=== PATIENT | male | born 1980 | race Caucasian/White ===

== ENCOUNTER → 2017-06-30 | Outpatient (CLI) | payer OTHER ==
[2017-06-30 14:45] LABS: ALT/SGPT 17 U/L (12-78); AST/SGOT 9 U/L (15-37); BLOOD UREA NITROGEN 15 mg/dl (7-18); BUN/CREATININE RATIO 22.3 (10-20); CALCIUM 9.3 mg/dl (8.5-10.1); CARBON DIOXIDE 30 mmol/L (21-32); CHLORIDE 105 mmol/L (98-107); CHOLESTEROL 151 mg/dl (0-200); CREATININE 0.69 mg/dl (0.60-1.40); GLUCOSE 75 mg/dl (70-99); POTASSIUM 3.8 mmol/L (3.5-5.1); SODIUM 141 mmol/L (136-145)
[2017-06-30 14:55] LABS: ALB/GLOB RATIO 1.3 (0.9-2); ALKALINE PHOSPHATASE 63 U/L (45-117); CHOLESTEROL/HDL RATIO 3.1; HDL CHOLESTEROL 48 mg/dl; LDL CHOLESTEROL CALCULATED 75 mg/dl; TRIGLYCERIDES 140 mg/dl (0-150); VERY LOW DENSITY LIPOPROT CALC 28 mg/dl
[2017-06-30 15:04] LABS: RATIO 5.5 mcg/mg (0-30.0)
[2017-06-30 18:40] LABS: ESTIMATED AVERAGE GLUCOSE 131 mg/dl; HA1C FLAG Normal (Normal)
--- NOTE | 2017-07-14 09:36 | CODING QUERY MEDICAL NECESSITY ---
CQSUPPORTING DIAGNOSIS NEEDED A supporting diagnosis is required for the test/procedure performed on this patient in order for us to be reimbursed by the patient's insurance. Please provide a supporting diagnosis for the following test/procedure listed below next to the test name along with your signature. *If there is no additional diagnosis for this patient that would support the following test/procedure please document that below next to the test/procedure. Test(s)/Procedure(s) that require a supporting diagnosis: DOS 06/30/17 VITAMIN D TEST GLYCATED HEMOGLOBIN TEST TEST ORDERED BY MARCO A CISNEROS Provider Signature: Date: Thank you Sarai Cortes Health Information Management Once completed, please kindly fax back to [phone] For questions please call [phone]
== END | disposition home or self-care (01) ==
LOC: C.LAB1850 12:35
PROVIDERS: ATTEND Physician Assistant
DX: E10.9 Type 1 diabetes mellitus without complications (principal)

== ENCOUNTER 2018-02-09 20:21 | Emergency (ER) | payer OTHER ==
[~2018-02-09] VITALS: Ht 172.7 cm; Wt 86.9 kg
[2018-02-09 20:43] VITALS: TEMP 36.8; Ht 172.7 cm; Wt 86.9 kg
[2018-02-09] MEDS ORDERED: SODIUM CHLORIDE 0.9% 1000ML 2,000 ML IV STA (21:14)
[2018-02-09] MEDS ORDERED: MoRPHine SULFATE 4 MG/ML 1 ML CARP\\VIAL IV STA (21:24)
[2018-02-09 21:28] LABS: BASO ABS # 0.08 K/uL (0-0.2); EOS % 4.1 %; EOS ABS # 0.31 K/uL (0-0.5); HEMATOCRIT 44.8 % (42-52); HEMOGLOBIN 15.7 g/dL (14.0-18.0); IG# 0.04 K/uL (0.00-0.02); LYMPH % 27.5 %; MEAN CELL VOLUME 93.7 fL (80-100); MEAN CORPUSCULAR HEMOGLOBIN 32.8 pg (25-34); MEAN PLATELET VOLUME 9.2 fL (7.4-10.4); MONO % 11.1 %; MONO ABS # 0.85 K/uL (0.11-0.59); NEUT % 55.8 %; NEUT ABS # 4.26 K/uL (1.4-6.5); PLATELET COUNT 299 K/uL (130-400); RED CELL DISTRIBUTION WIDTH CV 13.2 % (11.5-14.5); RED CELL DISTRIBUTION WIDTH SD 45.2 fL (36.4-46.3); WHITE BLOOD COUNT 7.64 K/uL (4.8-10.8)
[2018-02-09 21:44] LABS: ALBUMIN 3.5 gm/dl (3.4-5.0); CALCIUM 9.4 mg/dl (8.5-10.1); CREATININE 0.94 mg/dl (0.60-1.40)
[2018-02-09 21:47] LABS: TOTAL PROTEIN 7.3 gm/dl (6.4-8.2)
[2018-02-09] MEDS ORDERED: NovoLIN-R INSULIN PER UNIT CHARGE IV STA (21:50)
--- NOTE | 2018-02-09 22:02 | DIAGNOSTIC IMAGING REPORT ---
CHEST ONE VIEW PORTABLE CLINICAL HISTORY: weak mental status change COMPARISON STUDY: No previous studies for comparison. FINDINGS: The bones soft tissues and hemidiaphragms are normal. The cardiomediastinal silhouette is normal. The lungs are clear. The pulmonary vasculature is normal. IMPRESSION: Negative chest. The above report was generated using voice recognition software. It may contain grammatical, syntax or spelling errors. Electronically signed by: Isrrael Calvillo M.D. 02/09/2018 10:00 PM Dictated Date/Time: 02/09/2018 10:00 PM
[2018-02-09 23:11] VITALS: PULSE 77; O2SAT 97
[2018-02-09] MEDS ORDERED: MELATAB2 PO (23:11)
[2018-02-09] MEDS ORDERED: MULT-506 PO (23:12)
[2018-02-09] MEDS ORDERED: FOLI400T41 PO (23:13)
[2018-02-09] MEDS ORDERED: TOPI25TA99 PO (23:15)
[2018-02-09] MEDS ORDERED: DOCU100C31 PO (23:16)
[2018-02-09] MEDS ORDERED: ATOR-24 PO (23:17)
[2018-02-09] MEDS ORDERED: LISI-789 PO (23:19)
[2018-02-09] MEDS ORDERED: PHEN-774 PO (23:20)
[2018-02-09] MEDS ORDERED: MGNG500 PO (23:22)
[2018-02-09 23:31] VITALS: BP 112/70
[2018-02-09] MEDS ORDERED: INSDGI SQ (23:53)
[2018-02-09] MEDS ORDERED: INSU100I SQ (23:55)
[2018-02-09] MEDS ORDERED: AMPH30TA2 PO (23:56)
[2018-02-09] MEDS ORDERED: AMPH1TAB58 PO (23:58)
[2018-02-09] MEDS ORDERED: HYDR-5688 PO (23:59)
--- NOTE | 2018-02-10 01:33 | EMERGENCY ROOM VISIT NOTE ---
History Report prepared by Lelo: Jairo Ledezma Under the Supervision of: Dr. Jos Zamudio D.O. First contact with patient: 21:06 Chief Complaint: REFERRED BY DOCTOR Stated Complaint: DR BILLINGSLEY SENT DUE TO BLOOD SUGAR History of Present Illness The patient is a 37 year old male who presents to the Emergency Room with complaints of constant hypoglycemia beginning earlier today. The patient states he was diagnosed with type I diabetes 9 months ago. He reports he was on 5 units before meals and 20 units at bed time. The patient notes he was evaluated by the business process associate recently and told to increase his insulin to 20 units three times a day and 35 units at night. He states he started to get dizzy and weak today. The patient reports his last bowel movement was today, and it was very small. He notes he had surgery about a week ago for hemorrhoids, and he is still having trouble with his bowels. The patient states he had burning with urination earlier today, but it has resolved. He reports his blood sugar was 500 this morning, and it decreased to 300 prior to arrival in Dr. Billingsley's office. The patient notes he was sent to the ED directly from his business process associate's office. He denies cough, runny nose, pain with urination, abdominal pain, fevers, and vomiting. Source of History: patient Onset: earlier today Symptom Intensity: Blood glucose of 500 Quality: other (hyperglycemia) Timing: constant Associated Symptoms: + weakness, No fevers, No cough, No vomiting, No abdominal pain Note: Associated symptoms: burning with urination, dizziness Denies: runny nose, pain with urination Review of Systems See HPI for pertinent positives & negatives. A total of 10 systems reviewed and were otherwise negative. Past Medical & Surgical Medical Problems: (1) Diabetes type I Family History Patient reports no known family medical history. Social History Smoking Status: Current Some Day Smoker Marital Status: Occupation Status: employed Current/Historical Medications Scheduled Amphetamine-Dextroamphetamine 30MG (Adderall 30MG), 15 MG PO QAM Amphetamine-Dextroamphetamine 5MG (Adderall 5MG), 5 MG PO HS Atorvastatin (Lipitor), 40 MG PO DAILY Docusate Sodium (Docusate Sodium), 100 MG PO BID Folic Acid (Folvite), 400 MCG PO DAILY Insulin Glargine (Lantus), 35 UNITS SQ QPM Insulin Lispro (Human) (Humalog), 20 UNITS SQ AC Lisinopril (Zestril), 2.5 MG PO DAILY Magnesium Gluconate (Mag-G), 500 MG PO DAILY Melatonin (Melatonin Maximum Strengt), 2.5 MG PO HS Multivitamin (Multivitamin), 1 TAB PO DAILY Phenazopyridine Hcl (Pyridium), 100 MG PO TID Topiramate (Topamax ), 50 MG PO HS Scheduled PRN Hydrocodone/Acetaminophen 5MG/325MG (Poth 5MG/325MG), 1 TABLET PO Q4H PRN for Pain Allergies Coded Allergies: No Known Allergies (Unverified , 02/09/18) Physical Exam Vital Signs Date Time Temp Pulse Resp B/P (MAP) Pulse Ox O2 Delivery O2 Flow Rate FiO2 02/09/18 23:31 112/70 02/09/18 23:11 77 21 97 02/09/18 23:01 101/63 02/09/18 22:41 78 17 99 02/09/18 22:36 86 18 99 02/09/18 22:31 121/70 02/09/18 22:06 80 18 100 02/09/18 22:01 21 110/83 02/09/18 21:56 82 99 02/09/18 21:31 106/61 02/09/18 21:26 84 23 99 02/09/18 21:21 80 14 100 Room Air 02/09/18 21:17 102/60 02/09/18 21:10 95 02/09/18 20:43 36.8 99 16 100/59 97 Room Air Physical Exam GENERAL: Sitting up in bed, disheveled, non-toxic EYE EXAM: normal conjunctiva. OROPHARYNX: no exudate, no erythema, lips, buccal mucosa, and tongue normal and mucous membranes are moist NECK: supple, no nuchal rigidity, no adenopathy, non-tender LUNGS: Clear to auscultation. Normal chest wall mechanics HEART: no murmurs, S1 normal and S2 normal ABDOMEN: abdomen soft, non-tender, normo-active bowel sounds, no masses, no rebound or guarding. BACK: Back is symmetrical on inspection and there is no deformity, no midline tenderness, no CVA tenderness. RECTAL: Small external hemorrhoids present. No induration or erythema. SKIN: no rashes and no bruising UPPER EXTREMITIES: upper extremities are grossly normal. LOWER EXTREMITIES: No pitting edema. NEURO EXAM: Normal sensorium, cranial nerves II-XII grossly intact, normal speech, no gross weakness of arms, no gross weakness of legs. Medical Decision & Procedures ER Provider Diagnostic Interpretation: Radiology results as stated below per my review and the radiologist's interpretation: ' CHEST ONE VIEW PORTABLE CLINICAL HISTORY: weak mental status change COMPARISON STUDY: No previous studies for comparison. FINDINGS: The bones soft tissues and hemidiaphragms are normal. The cardiomediastinal silhouette is normal. The lungs are clear. The pulmonary vasculature is normal. IMPRESSION: Negative chest. The above report was generated using voice recognition software. It may contain grammatical, syntax or spelling errors. Electronically signed by: Isrrael Calvillo M.D. 02/09/2018 10:00 PM Dictated Date/Time: 02/09/2018 10:00 PM Laboratory Results 02/09/18 20:55 Red Blood Count 4.78, Mean Corpuscular Volume 93.7, Mean Corpuscular Hemoglobin 32.8, Mean Corpuscular Hemoglobin Concent 35.0, Mean Platelet Volume 9.2, Neutrophils (%) (Auto) 55.8, Lymphocytes (%) (Auto) 27.5, Monocytes (%) (Auto) 11.1, Eosinophils (%) (Auto) 4.1, Basophils (%) (Auto) 1.0, Neutrophils # (Auto ) 4.26, Lymphocytes # (Auto) 2.10, Monocytes # (Auto) 0.85, Eosinophils # (Auto ) 0.31, Basophils # (Auto) 0.08 02/09/18 20:55 Test 02/09/18 20:55 02/09/18 22:55 02/09/18 22:56 White Blood Count 7.64 K/uL (4.8-10.8) Red Blood Count 4.78 M/uL (4.7-6.1) Hemoglobin 15.7 g/dL (14.0-18.0) Hematocrit 44.8 % (42-52) Mean Corpuscular Volume 93.7 fL (80-100) Mean Corpuscular Hemoglobin 32.8 pg (25-34) Mean Corpuscular Hemoglobin Concent 35.0 g/dl (32-36) Platelet Count 299 K/uL (130-400) Mean Platelet Volume 9.2 fL (7.4-10.4) Neutrophils (%) (Auto) 55.8 % Lymphocytes (%) (Auto) 27.5 % Monocytes (%) (Auto) 11.1 % Eosinophils (%) (Auto) 4.1 % Basophils (%) (Auto) 1.0 % Neutrophils # (Auto) 4.26 K/uL (1.4-6.5) Lymphocytes # (Auto) 2.10 K/uL (1.2-3.4) Monocytes # (Auto) 0.85 K/uL (0.11-0.59) Eosinophils # (Auto) 0.31 K/uL (0-0.5) Basophils # (Auto) 0.08 K/uL (0-0.2) RDW Standard Deviation 45.2 fL (36.4-46.3) RDW Coefficient of Variation 13.2 % (11.5-14.5) Immature Granulocyte % (Auto) 0.5 % Immature Granulocyte # (Auto) 0.04 K/uL (0.00-0.02) Anion Gap 7.0 mmol/L (3-11) Est Creatinine Clear Calc Drug Dose 115.3 ml/min Estimated GFR () 119.6 Estimated GFR (Non- 103.2 BUN/Creatinine Ratio 15.8 (10-20) Calcium Level 9.4 mg/dl (8.5-10.1) Total Bilirubin 0.4 mg/dl (0.2-1) Direct Bilirubin 0.1 mg/dl (0-0.2) Aspartate Amino Transf (AST/SGOT) 11 U/L (15-37) Alanine Aminotransferase (ALT/SGPT) 26 U/L (12-78) Alkaline Phosphatase 83 U/L (45-117) Total Protein 7.3 gm/dl (6.4-8.2) Albumin 3.5 gm/dl (3.4-5.0) Lipase 236 U/L (73-393) Random Cortisol 4.49 mcg/dl Urine Color ORANGE Urine Appearance CLEAR (CLEAR) Urine pH (4.5-7.5) Urine Specific [place] 1.030 (1.000-1.030) Urine Protein NEG (NEG) Urine Glucose (UA) (NEG) Urine Ketones (NEG) Urine Occult Blood (NEG) Urine Nitrite (NEG) Urine Bilirubin (NEG) Urine Urobilinogen (NEG) Urine Leukocyte Esterase (NEG) Urine RBC 0-4 /hpf (0-4) Urine WBC 1-5 /hpf (0-5) Urine Epithelial Cells 5-10 /lpf (0-5) Urine Bacteria NEG (NEG) Urine Hyaline Casts 1-5 /lpf (0-5) Bedside Glucose 221 mg/dl (70-99) Laboratory results per my review. Medications Administered Medications (Trade) Dose Ordered Sig/Deven Route Start Time Stop Time Status Last Admin Dose Admin Sodium Chloride 2,000 ml @ 999 mls/hr Q2H1M STAT IV 02/09/18 21:14 02/09/18 23:14 DC 02/09/18 21:16 999 MLS/HR Morphine Sulfate (MoRPHine SULFATE INJ) 4 mg NOW STAT IV 02/09/18 21:24 02/09/18 21:25 DC 02/09/18 21:32 4 MG Insulin Human Regular (novoLIN-R U-100 PER UNIT) 3 units NOW STAT IV 02/09/18 21:50 02/09/18 21:51 DC 02/09/18 22:07 3 UNITS ECG Per My Interpretation Indication: weakness Rate (beats per minute): 84 Rhythm: sinus rhythm Findings: no ectopy, other (Normal axis) ED Course ED COURSE: Vital signs were reviewed and showed tachycardia. The patients medical record was reviewed The above diagnostic studies were performed and reviewed. ED treatments and interventions as stated above. 2107: The patient was evaluated in room C12B. A complete history and physical examination was performed. 2113: Ordered Sodium Chloride 2000 ml @ 999 mls/hr IV 2123: Ordered Morphine Sulfate 4mg IV 0: Ordered Insulin Human Regular 3 units IV 2331: Upon reevaluation, the patient is resting. I discussed my findings with the patient and he understands and agrees with the treatment plan. Based on the patients age, coexisting illnesses, exam and lab findings the decision to treat as an outpatient was made. The patient remained stable while under my care. The patient appeared well at the time of discharge. Medical Decision Differential Diagnosis includes but is not limited to dehydration, stroke, anemia, hypoglycemia, hyponatremia, hypernatremia, urinary tract infection, pneumonia, bronchitis, sepsis, gastroenteritis, additional abdominal pathology, metabolic abnormalities and infections. Patient is a 37-year-old male that presents the ER for hyperglycemia. This is been elevated he has been following with his business process associate. He is a type I diabetic. No upper respiratory symptoms. No significant abdominal pain. Exam is benign. CBC along with BMP, LFTs, bilirubin lipase were unremarkable. Random cortisol was 4.5 requested by endocrinology. BSG trended down to 21 after IV insulin and fluids. No gap. UA without white cells. Patient was feeling significantly better. No obvious signs of infection. He was discharged follow-up with PCP as an outpatient. Discussed with Pt concerning signs and symptoms to watch out for. Pt was instructed to follow up with their PCP and discussed with the patient their option to return to the ED at anytime for persistent or worsening symptoms. The appropriate anticipatory guidance and out-patient management, including indications for return to the emergency department, were explained at length to the patient and understood. Medication Reconcilliation Current Medication List: was personally reviewed by me Blood Pressure Screening Patient's blood pressure: Normal blood pressure Blood pressure disposition: Did not require urgent referral Impression Primary Impression: Hyperglycemia Scribe Attestation The scribe's documentation has been prepared under my direction and personally reviewed by me in its entirety. I confirm that the note above accurately reflects all work, treatment, procedures, and medical decision making performed by me. Departure Information Dispostion Home / Self-Care Referrals [facility] [employer] Forms HOME CARE DOCUMENTATION FORM, IMPORTANT VISIT INFORMATION, WORK / SCHOOL INSTRUCTIONS Patient Instructions Hyperglycemia, My [facility] Additional Instructions Please follow up with your primary care doctor with in the next 24 hours. Any worsening of your symptoms, please return to the ED immediately. This includes any fevers greater than 100.4, worsening pain, chest pain, shortness breath, persistent nausea, vomiting, unable to eat or drink, or any other concerning signs or symptoms from your standpoint. Any fevers above 100.4 or worsening pain please return to the ER for repeat abdominal exam. Please follow-up with your business process associate for blood sugars.
[2018-02-12] MEDS ORDERED: ASPCH81X PO (08:37)
== END 2018-02-09 23:47 | disposition home or self-care (01) ==
LOC: C.EDB 20:22 → C.EDC 23:47
DX: E10.65 Type 1 diabetes mellitus with hyperglycemia (principal); F17.210 Nicotine dependence, cigarettes, uncomplicated; Z79.4 Long term (current) use of insulin; Z79.899 Other long term (current) drug therapy

== ENCOUNTER → 2018-02-12 | Day surgery (SDC) | payer OTHER ==
[~2018-02-12] VITALS: Ht 172.7 cm; Wt 87.8 kg
[~2018-02-12] MED LIST: AMPH1TAB58 PO; AMPH30TA2 PO; ASPCH81X PO; ATOR-24 PO; COSYNTROPIN INJ 1 MCG in SYRINGE 0 ML IV SCH; DOCU100C31 PO; FOLI400T41 PO; HYDR-5688 PO; INSDGI SQ; INSU100I SQ; LISI-789 PO; MELATAB2 PO; MGNG500 PO; MULT-506 PO; PHEN-774 PO; TOPI25TA99 PO
[2018-02-12 08:38] VITALS: BP 94/63; PULSE 63; TEMP 36.8; O2SAT 96; Ht 172.7 cm; Wt 87.8 kg
[2018-02-12 09:19] VITALS: BP 110/73; PULSE 65; O2SAT 95
[2018-02-12 09:54] VITALS: BP 116/72; PULSE 67; TEMP 36.6; O2SAT 96
== END | disposition home or self-care (01) ==
LOC: C.MTU 07:48
PROVIDERS: ATTEND Internal Medicine Endocrinology, Diabetes & Metabolism
DX: E10.9 Type 1 diabetes mellitus without complications (principal); R94.6 Abnormal results of thyroid function studies